=== PATIENT | male | born 1990 | race Caucasian/White ===

== ENCOUNTER 2021-04-27 23:35 | Emergency (ER) | payer MEDICAID, OTHER ==
[~2021-04-27] VITALS: Ht 167.6 cm; Wt 86.2 kg
[2021-04-27 23:51] VITALS: BP_SYST 150
[2021-04-28 00:30] VITALS: BP_SYST 126
== END 2021-04-28 00:28 ==
LOC: SED 23:35
DX: Z02.89 Encounter for other administrative examinations (principal)
CPT/HCPCS: 99283